=== PATIENT | female | born 1990 | race African-American/Black ===

== ENCOUNTER 2024-04-12 14:03 | Emergency (ER) | payer OTHER ==
[~2024-04-12] VITALS: Ht 162.6 cm; Wt 78.7 kg
[2024-04-12] MEDS ORDERED: AMOXICILLIN500 MG PO (15:03)
[2024-04-12] MEDS ORDERED: ORABASE11.9 GM BU (15:05)
[2024-04-12] MEDS ORDERED: IBUPROFEN 600 MG TAB ONE (15:41)
[2024-04-12] MEDS ORDERED: AMOXICILLIN/CLAVULANATE K 875 MG TAB ONE (15:41)
[2024-04-12] MEDS: IBUPROFEN 600 MG TAB PO STA (15:45)
[2024-04-12] MEDS: AMOXICILLIN/CLAVULANATE K 875 MG TAB PO STA (15:45)
[2024-04-12] MEDS: BENZOCAINE 20% SPR 60 ML CAN MT ONE (15:46)
[2024-04-12 15:50] VITALS: PULSE 87; RESP 16; TEMP 98.5; O2SAT 100
== END 2024-04-12 15:50 | disposition home or self-care (01) ==
LOC: FSED 14:40
DX: K08.89 Other specified disorders of teeth and supporting structures (principal); K02.9 Dental caries, unspecified
CPT/HCPCS: 99283